=== PATIENT | male | born 1965 | race American Indian/Alaskan Native ===

== ENCOUNTER 2021-09-02 00:53 | Emergency (ER) | payer SELFPAY ==
[2021-09-02 07:13] VITALS: BP 149/95
--- NOTE | 2021-09-02 10:07 | Electrocardiograph Report ---
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
[2021-09-02] MEDS ORDERED: KETOROLAC 30 MG/1 ML INJ IV ONE (10:30)
[2021-09-02] MEDS ORDERED: SODIUM CHLORIDE 0.9% 1000 ML 1,000 ML IV ONE (10:30)
[2021-09-02] MEDS ORDERED: FAMOTIDINE 20 MG/2 ML INJ IV ONE ×2 (10:30→10:35)
[2021-09-02] MEDS ORDERED: ONDANSETRON 4 MG/2 ML INJ IV ONE (10:30)
[2021-09-02 11:18] LABS: Hematocrit 39.9 % (35.5-45.6); Hemoglobin 14.2 gm/dl (11.8-15.2); Lymphocytes # (Auto) 1.1 K/mm3 (1.2-5.4); Lymphocytes % (Auto) 13.6 % (13.4-35.0); Mean Corpuscular HGB Conc 36 % (32-34); Mean Corpuscular Volume 105 fl (84-94); Monocytes # (Auto) 0.4 K/mm3 (0.0-0.8); Monocytes % (Auto) 5.4 % (0.0-7.3); Platelet Count 228 K/mm3 (140-440); Red Blood Count 3.81 M/mm3 (3.65-5.03); Red Cell Distribution Width 13.7 % (13.2-15.2)
--- NOTE | 2021-09-02 11:21 | Emergency Department Report ---
ED N/V/D HPI - General Chief complaint: Nausea/Vomiting/Diarrhea Stated complaint: ABD PAIN/EMESIS/FOOD POISONING PUI?: No Time Seen by Provider: 09/02/21 10:00 Source: patient Mode of arrival: Ambulatory Limitations: No Limitations - History of Present Illness Initial comments: This is a 56-year-old male who presents to the ED today complaining nausea vomiting and diarrhea that began yesterday after he had food from [employer]. Patient states vomiting started yesterday and since then he has not been able to eat or drink anything. Patient states that he is also been having some abdominal cramping since symptoms started. Patient denies any fever, shortness of breath, chest pain, dysuria, hematuria or any other symptoms. MD complaint: nausea, vomiting, diarrhea -: days(s) Description of Vomiting: food contents, bilious Description of Diarrhea: water Associated Abdominal Pain: Yes Location: diffuse Radiation: none Severity: moderate Pain Scale: 7 Quality: cramping, aching Consistency: constant Improves with: none Worsens with: eating Context: possible food poisoning - Related Data Previous Rx's Medication Instructions Recorded Last Taken Type Dicyclomine [Bentyl] 10 mg PO TID #20 capsule 09/02/21 Unknown Rx Famotidine [Pepcid] 20 mg PO BID #20 tablet 09/02/21 Unknown Rx Ondansetron [Zofran ODT TAB] 8 mg PO Q8HR #30 tab 09/02/21 Unknown Rx Allergies Allergy/AdvReac Type Severity Reaction Status Date / Time No Known Allergies Allergy Unverified 09/02/21 01:12 ED Review of Systems ROS: Stated complaint: ABD PAIN/EMESIS/FOOD POISONING Other details as noted in HPI Comment: All other systems reviewed and negative ED Past Medical Hx - Medications Home Medications: Home Medications Medication Instructions Recorded Confirmed Last Taken Type Dicyclomine [Bentyl] 10 mg PO TID #20 capsule 09/02/21 Unknown Rx Famotidine [Pepcid] 20 mg PO BID #20 tablet 09/02/21 Unknown Rx Ondansetron [Zofran ODT TAB] 8 mg PO Q8HR #30 tab 09/02/21 Unknown Rx ED Physical Exam - General Limitations: No Limitations General appearance: alert, in no apparent distress - Head Head exam: Present: atraumatic, normocephalic - Eye Eye exam: Present: normal appearance - ENT ENT exam: Present: mucous membranes moist - Neck Neck exam: Present: normal inspection - Respiratory Respiratory exam: Present: normal lung sounds bilaterally. Absent: respiratory distress, wheezes, chest wall tenderness, accessory muscle use - Cardiovascular Cardiovascular Exam: Present: regular rate, normal rhythm. Absent: systolic murmur, diastolic murmur, rubs, gallop - GI/Abdominal GI/Abdominal exam: Present: soft, normal bowel sounds. Absent: distended, tenderness, rebound - Rectal Rectal exam: Present: deferred - Extremities Exam Extremities exam: Present: normal inspection - Back Exam Back exam: Present: normal inspection - Neurological Exam Neurological exam: Present: alert, oriented X3 - Psychiatric Psychiatric exam: Present: normal affect, normal mood - Skin Skin exam: Present: warm, dry, intact, normal color. Absent: rash ED Course Vital Signs 09/02/21 09/02/21 09/02/21 01:11 07:12 13:53 Temperature 98.4 F Pulse Rate 79 105 H 100 H Respiratory 16 18 18 Rate Blood Pressure 140/84 Blood Pressure 149/95 149/95 [Left] O2 Sat by Pulse 98 99 99 Oximetry ED Medical Decision Making - Lab Data Result diagrams: 09/02/21 10:27 09/02/21 10:27 Laboratory Last Values WBC 7.9 K/mm3 (4.5-11.0) 09/02/21 10:27 RBC 3.81 M/mm3 (3.65-5.03) 09/02/21 10:27 Hgb 14.2 gm/dl (11.8-15.2) 09/02/21 10:27 Hct 39.9 % (35.5-45.6) 09/02/21 10:27 MCV 105 fl (84-94) H 09/02/21 10:27 MCH 37 pg (28-32) H 09/02/21 10:27 MCHC 36 % (32-34) H 09/02/21 10:27 RDW 13.7 % (13.2-15.2) 09/02/21 10:27 Plt Count 228 K/mm3 (140-440) 09/02/21 10:27 Lymph % (Auto) 13.6 % (13.4-35.0) 09/02/21 10:27 [place] % (Auto) 5.4 % (0.0-7.3) 09/02/21 10:27 Eos % (Auto) 0.0 % (0.0-4.3) 09/02/21 10:27 Baso % (Auto) 0.0 % (0.0-1.8) 09/02/21 10:27 Lymph # (Auto) 1.1 K/mm3 (1.2-5.4) L 09/02/21 10:27 Sequ[place]ah # (Auto) 0.4 K/mm3 (0.0-0.8) 09/02/21 10:27 Eos # (Auto) 0.0 K/mm3 (0.0-0.4) 09/02/21 10:27 Baso # (Auto) 0.0 K/mm3 (0.0-0.1) 09/02/21 10:27 Seg Neutrophils % 81.0 % (40.0-70.0) H 09/02/21 10:27 Seg Neutrophils # 6.4 K/mm3 (1.8-7.7) 09/02/21 10:27 Sodium 140 mmol/L (137-145) 09/02/21 10:27 Potassium 4.3 mmol/L (3.6-5.0) 09/02/21 10:27 Chloride 103.7 mmol/L (98-107) 09/02/21 10:27 Carbon Dioxide 25 mmol/L (22-30) 09/02/21 10:27 Anion Gap 16 mmol/L 09/02/21 10:27 BUN 23 mg/dL (9-20) H 09/02/21 10:27 Creatinine 1.3 mg/dL (0.8-1.3) 09/02/21 10:27 Estimated GFR > 60 ml/min 09/02/21 10:27 BUN/Creatinine Ratio 18 % 09/02/21 10:27 Glucose 133 mg/dL (75-100) H 09/02/21 10:27 Calcium 9.8 mg/dL (8.4-10.2) 09/02/21 10:27 Total Bilirubin 0.50 mg/dL (0.1-1.2) 09/02/21 10:27 AST 64 units/L (5-40) H 09/02/21 10:27 ALT 47 units/L (7-56) 09/02/21 10:27 Alkaline Phosphatase 105 units/L (35-129) 09/02/21 10:27 Troponin T < 0.010 ng/mL (0.00-0.029) 09/02/21 10:27 Total Protein 13.0 g/dL (6.3-8.2) H 09/02/21 10:27 Albumin 4.3 g/dL (3.9-5) 09/02/21 10:27 Albumin/Globulin Ratio 0.5 % 09/02/21 10:27 Lipase 17 units/L (13-60) 09/02/21 10:27 Urine Color Yellow (Yellow) 09/02/21 11:32 Urine Turbidity Turbid (Clear) 09/02/21 11:32 Urine pH 5.0 (5.0-7.0) 09/02/21 11:32 Ur Specific [place] 1.029 (1.003-1.030) 09/02/21 11:32 Urine Protein 100 mg/dl mg/dL (Negative) 09/02/21 11:32 Urine Glucose (UA) Neg mg/dL (Negative) 09/02/21 11:32 Urine Ketones Neg mg/dL (Negative) 09/02/21 11:32 Urine Blood Mod (Negative) 09/02/21 11:32 Urine Nitrite Neg (Negative) 09/02/21 11:32 Urine Bilirubin Neg (Negative) 09/02/21 11:32 Urine Urobilinogen < 2.0 mg/dL (<2.0) 09/02/21 11:32 Ur Leukocyte Esterase Neg (Negative) 09/02/21 11:32 Urine WBC (Auto) < 1.0 /HPF (0.0-6.0) 09/02/21 11:32 Urine RBC (Auto) 11.0 /HPF (0.0-6.0) 09/02/21 11:32 U Epithel Cells (Auto) < 1.0 /HPF (0-13.0) 09/02/21 11:32 Urine Mucus 1+ /HPF 09/02/21 11:32 - Medical Decision Making 56-year-old male who presented with gastroenteritis secondary to food poisoning. All labs within normal limits, urinalysis negative. Discussed all findings with the patient. Patient received fluids, meds in the ED reports feeling much better. Discussed brat diet with the patient. 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 Patient was in no acute or respiratory distress throughout ED stay. Tolerated p.o. challenge. - Differential Diagnosis Gastroenteritis, UTI Critical care attestation.: If time is entered above; I have spent that time in minutes in the direct care of this critically ill patient, excluding procedure time. ED Disposition Clinical Impression: Gastroenteritis Disposition: 01 HOME / SELF CARE / HOMELESS Is pt being admited?: No Does the pt Need Aspirin: No Condition: Stable Instructions: Viral Gastroenteritis, Adult, [id number] Additional Instructions: Make sure to follow up with the primary care physician as discussed. Take all your medications as you've been prescribed. If you have any worsening symptoms or develop new symptoms please return to ED immediately. Discharge Prescriptions: Dicyclomine [Bentyl] 10 mg PO TID #20 capsule Famotidine [Pepcid] 20 mg PO BID #20 tablet Ondansetron [Zofran ODT TAB] 8 mg PO Q8HR #30 tab Referrals: [facility] [Outside] - 3-[address] [facility] [Outside] - 3-5 Days [facility] [Outside] - 3-5 Days Forms: Work/School Release Form(ED) Time of Disposition: 13:20
[2021-09-02 11:39] LABS: Alanine Aminotransferase 47 units/L (7-56); Albumin 4.3 g/dL (3.9-5); BUN/Creatinine Ratio 18; Blood Urea Nitrogen 23 mg/dL (9-20); Calcium 9.8 mg/dL (8.4-10.2); Hemolysis Index 0
[2021-09-02 12:55] LABS: Bilirubin,Urine NEG (Negative); Blood,Urine MOD (Negative); Color,Urine Yellow (Yellow); Urobilinogen,Urine < 2.0 mg/dL (<2.0)
[2021-09-02 13:04] LABS: WBC,Urine < 1.0 /HPF (0.0-6.0)
[2021-09-02 13:06] LABS: Mucus,Urine 1+ /HPF
== END 2021-09-02 13:53 | disposition home or self-care (01) ==
LOC: ED 00:53
DX: K52.9 Noninfective gastroenteritis and colitis, unspecified (principal); Z79.899 Other long term (current) drug therapy
CPT/HCPCS: 36415; 80053; 81001; 83690; 84484; 85025; 93005; 96361; 96374; 96375; 99283; J1885; J2405; J3490; J7030